=== PATIENT | female | born 1960 | race Caucasian/White ===

== ENCOUNTER 2019-01-10 20:11 | Emergency (ER) | payer MEDICAID ==
[~2019-01-10] VITALS: Ht 160 cm; Wt 81.6 kg
[2019-01-10 21:09] VITALS: BP 143/84
== END 2019-01-10 21:12 | disposition home or self-care (01) ==
LOC: ER 20:13
DX: M75.52 Bursitis of left shoulder (principal); M54.10 Radiculopathy, site unspecified; Z88.6 Allergy status to analgesic agent; Z91.030 Bee allergy status
CPT/HCPCS: A4663